=== PATIENT | male | born 1990 | race Caucasian/White ===

== ENCOUNTER 2017-02-11 09:18 | Emergency (ER) | payer OTHER ==
[~2017-02-11] VITALS: Ht 177.8 cm; Wt 100.0 kg
[2017-02-11 09:21] VITALS: BP 141/72; PULSE 72; RESP 18; TEMP 98.1; O2SAT 100
[2017-02-11 09:25] VITALS: BP 141/72; PULSE 68; RESP 18; TEMP 98.1; O2SAT 100
[2017-02-11 09:30] VITALS: PULSE 72; RESP 18; O2SAT 100
[2017-02-11] MEDS ORDERED: TYLE325T PO (09:30)
[2017-02-11] MEDS ORDERED: IBUP-232 PO (09:30)
[2017-02-11] MEDS ORDERED: SODIUM CHLORIDE 0.9% FLUSH 10 ML FLUSH IVF PRN (09:30)
[2017-02-11] MEDS ORDERED: LIDOCAINE VISCOUS 2% SOLN 15 ML UDC PO ONE (09:45)
[2017-02-11] MEDS ORDERED: ONDANSETRON HCL 4 MG/2 ML VIAL IV PUSH ONE (09:45)
[2017-02-11] MEDS ORDERED: ALUMINUM/MAGNESIUM/SIMETH 30 ML CUP PO ONE (09:45)
[2017-02-11] MEDS ORDERED: HYDROmorphone HCL PF 1 MG/ML VIAL IV PUSH ONE (09:45)
[2017-02-11 09:59] LABS: AUTOMATED NEUTROPHIL # 6.8 TH/MM3 (1.8-7.7); BASOPHIL # 0.1 TH/MM3 (0-0.2); BASOPHIL % 0.5 % (0.0-2.0); EOSINOPHIL # 0.2 TH/MM3 (0-0.4); EOSINOPHIL % 2.2 % (0.0-4.0); HEMATOCRIT 42.3 % (39.0-51.0); HEMO FLAGS DIFF FINAL; LYMPHOCYTE # 2.2 TH/MM3 (1.0-4.8); MEAN CORPUSCULAR HEMOGLOBIN 31.4 PG (27.0-34.0); MEAN CORPUSCULAR HGB CONC 34.1 % (32.0-36.0); MONO % 6.9 % (0.0-8.0); NEUT % 68.4 % (16.0-70.0); PLATELET COUNT 264 TH/MM3 (150-450); RED CELL DISTRIBUTION WIDTH 12.8 % (11.6-17.2); WHITE BLOOD COUNT 9.9 TH/MM3 (4.0-11.0)
[2017-02-11 10:00] VITALS: BP_SYST 141; BP_SYST 143; BP_DIAS 78; BP_DIAS 92; PULSE 80; RESP 18; O2SAT 100
[2017-02-11 10:08] LABS: APTT (PATIENT) 25.2 SEC (24.3-30.1); PROTHROMBIN TIME - PATIENT 10.3 SEC (9.8-11.6)
[2017-02-11 10:17] LABS: ALT (GPT) 40 U/L (12-78); ANION GAP 8 MEQ/L (5-15); AST (GOT) 23 U/L (15-37); BICARBONATE 24.6 MEQ/L (21.0-32.0); BLOOD UREA NITROGEN 11 MG/DL (7-18); CHLORIDE 108 MEQ/L (98-107); GLOMERULAR FILTRATION RATE 102 ML/MIN (>89); POTASSIUM 3.9 MEQ/L (3.5-5.1); SODIUM (NA) 141 MEQ/L (136-145)
[2017-02-11 10:20] LABS: ALKALINE PHOSPHATASE 61 U/L (45-117); CREATINE KINASE 207 U/L (39-308); TOTAL BILIRUBIN ADULT 0.6 MG/DL (0.2-1.0)
[2017-02-11 10:34] VITALS: RESP 16
[2017-02-11] MEDS ORDERED: IOHEXOL 350 MG/ML 10 ML VIAL (for RAD DIAG) IVCONTRAST ONE (10:35)
--- NOTE | 2017-02-11 11:02 | RADRPT ---
EXAM DATE/TIME: 02/11/2017 10:33 [facility] COMPARISON: No previous studies available for comparison. INDICATIONS : Substernal chest pain IV CONTRAST: 70 cc Omnipaque 350 (iohexol) IV RADIATION DOSE: 23.28 CTDIvol (mGy) MEDICAL HISTORY : None SURGICAL HISTORY : None. ENCOUNTER: Initial ACUITY: 1 day PAIN SCALE: 6/10 LOCATION: chest TECHNIQUE: Volumetric scanning of the chest was performed using a pulmonary embolism protocol MIP images were re constructed. Using automated exposure control and adjustment of the mA and/or kV according to patien t size, radiation dose was kept as low as reasonably achievable to obtain optimal diagnostic quality images. DICOM format image data is available electronically for review and comparison. Follow-up recommendations for detected pulmonary nodules are based at a minimum on nodule size and pa tient risk factors according to Fleischner Society Guidelines. FINDINGS: PULMONARY ARTERIES: There is less than optimal opacification of the pulmonary arteries. No PE is identified through the l obar and most of the segmental level pulmonary vessels. LUNGS: There is no consolidation or pneumothorax . No concerning pulmonary nodule is visualized. PLEURAE: There is no pleural thickening or pleural effusion. MEDIASTINUM: The heart and great vessels demonstrate no acute finding. MUSCULOSKELETAL: There are degenerative changes of the thoracic spine. MISCELLANEOUS: The visualized upper abdominal organs demonstrate no acute abnormality. CONCLUSION: 1. No PE is identified. 2. Additionally, no acute finding is identified to explain the clinical symptoms. Kam Jade MD on February 11, 2017 at 10:56 Board Certified Radiologist. This report was verified electronically.
[2017-02-11 11:07] LABS: CKMB 1.7 NG/ML (0.5-3.6)
[2017-02-11] MEDS ORDERED: GAVISUS2 PO (11:39)
--- NOTE | 2017-02-11 11:39 | PD ---
HPI Chief Complaint: Chest Pain Time Seen by Provider: 09:23 Travel History International Travel<30 days: No Contact w/Intl Traveler<30days: No Traveled to known affect area: No History of Present Illness HPI 26 yo male complains of chest pain which started while driving to work. he states it's severe, retrosternal, not radiating and pleuritic in nature. no cough or fever. pt vomited multiple times two nights prior and again yesterday morning. he reports binge alcohol drinking. no cocaine or amphetamines. no family hx cad. no personal hx dm, htn, hld. + tobaccoism. no similar priors. No hemoptysis or bloody stool. PFSH Past Medical History Medical History: Denies Significant Hx ?: Not Past Surgical History Surgical History: No Previous Surgery Social History Alcohol Use: Yes Tobacco Use: Yes Substance Use: No Allergies-Medications (Allergen,Severity, Reaction): Coded Allergies: No Known Allergies (Unverified , 02/11/17) Reported Meds & Prescriptions Reported Meds & Active Scripts Active Gaviscon Extra Strength R Liq (Aluminum Hydroxide-Mag Carb Liq) 508-475 Mg/10 Ml Susp 10-20 Ml PO QID PRN 5 Days Maximum 80 mL/24 hrs. Reported Ibuprofen 600 Mg Tab 600 Mg PO Q6H PRN Tylenol (Acetaminophen) 325 Mg Tab 650 Mg PO Q4H PRN Review of Systems Except as stated in HPI: all other systems reviewed are Neg General / Constitutional: No: Fever Physical Exam Narrative GENERAL: 26 yo male, wnwd, mild distress 2/2 pain and/or anxiety SKIN: Warm and dry. HEAD: Atraumatic. Normocephalic. EYES: Pupils equal and round. No scleral icterus. No injection or drainage. ENT: No nasal bleeding or discharge. Mucous membranes pink and moist. NECK: Trachea midline. No JVD. CARDIOVASCULAR: minimal tachycardia. no crepitus/crunch, RESPIRATORY: No accessory muscle use. Clear to auscultation. Breath sounds equal bilaterally. GASTROINTESTINAL: Abdomen soft, non-tender, nondistended. Hepatic and splenic margins not palpable. MUSCULOSKELETAL: Extremities without clubbing, cyanosis, or edema. No obvious deformities. NEUROLOGICAL: Awake and alert. No obvious cranial nerve deficits. Motor grossly within normal limits. Five out of 5 muscle strength in the arms and legs. Normal speech. PSYCHIATRIC: Appropriate mood and affect; insight and judgment normal. Data Data Last Documented VS Vital Signs Date Time Temp Pulse Resp B/P (MAP) Pulse Ox O2 Delivery O2 Flow Rate FiO2 02/11/17 12:27 90 18 156/64 (94) 98 02/11/17 10:00 Nasal Cannula 2.00 02/11/17 09:25 98.1 VS reviewed Orders Orders Electrocardiogram (02/11/17:23) Ckmb (Isoenzyme) Profile (02/11/17:23) Complete Blood Count With Diff (02/11/17:23) Comprehensive Metabolic Panel (02/11/17:23) Magnesium (Mg) (02/11/17:) Prothrombin Time / Inr (Pt) (02/11/17:23) Act Partial Throm Time (Ptt) (02/11/17:23) Troponin I (02/11/17:23) Lipase (02/11/17:23) Chest, Single Ap (02/11/17:23) Ecg Monitoring (02/11/17:23) Bilateral Bp Monitoring (02/11/17:23) Iv Access Insert/Monitor (02/11/17:23) Oximetry (02/11/17:23) Oxygen Administration (02/11/17:23) Sodium Chloride 0.9% Flush (Ns Flush) (02/11/17 09:30) Ct Pulmonary Angiogram (02/11/17 09:23) Ondansetron Inj (Zofran Inj) (02/11/17 09:45) Hydromorphone Pf Inj (Dilaudid Pf Inj) (02/11/17 09:45) Al-Mag Hy-Si 40-40-4 Mg/Ml Liq (Mag-Al P (02/11/17 09:45) Lidocaine 2% Viscous (Xylocaine 2% Visco (02/11/17 09:45) CKMB (02/11/17 09:30) CKMB% (02/11/17 09:30) Iohexol 350 Inj (Omnipaque 350 Inj) (02/11/17 10:35) Ed Discharge Order (02/11/17 11:41) Labs Laboratory Tests Test 02/11/17 09:30 White Blood Count 9.9 TH/MM3 Red Blood Count 4.60 MIL/MM3 Hemoglobin 14.5 GM/DL Hematocrit 42.3 % Mean Corpuscular Volume 92.0 FL Mean Corpuscular Hemoglobin 31.4 PG Mean Corpuscular Hemoglobin Concent 34.1 % Red Cell Distribution Width 12.8 % Platelet Count 264 TH/MM3 Mean Platelet Volume 7.5 FL Neutrophils (%) (Auto) 68.4 % Lymphocytes (%) (Auto) 22.0 % Monocytes (%) (Auto) 6.9 % Eosinophils (%) (Auto) 2.2 % Basophils (%) (Auto) 0.5 % Neutrophils # (Auto) 6.8 TH/MM3 Lymphocytes # (Auto) 2.2 TH/MM3 Monocytes # (Auto) 0.7 TH/MM3 Eosinophils # (Auto) 0.2 TH/MM3 Basophils # (Auto) 0.1 TH/MM3 CBC Comment DIFF FINAL Differential Comment Prothrombin Time 10.3 SEC Prothromb Time International Ratio 1.0 RATIO Activated Partial Thromboplast Time 25.2 SEC Blood Urea Nitrogen 11 MG/DL Creatinine 0.91 MG/DL Random Glucose 90 MG/DL Total Protein 7.4 GM/DL Albumin 3.9 GM/DL Calcium Level 9.2 MG/DL Magnesium Level 2.0 MG/DL Alkaline Phosphatase 61 U/L Aspartate Amino Transf (AST/SGOT) 23 U/L Alanine Aminotransferase (ALT/SGPT) 40 U/L Total Bilirubin 0.6 MG/DL Sodium Level 141 MEQ/L Potassium Level 3.9 MEQ/L Chloride Level 108 MEQ/L Carbon Dioxide Level 24.6 MEQ/L Anion Gap 8 MEQ/L Estimat Glomerular Filtration Rate 102 ML/MIN Total Creatine Kinase 207 U/L Creatine Kinase MB 1.7 NG/ML Troponin I LESS THAN 0.02 NG/ML Lipase 73 U/L [facility] Medical Decision Making Medical Screen Exam Complete: Yes Emergency Medical Condition: Yes Medical Record Reviewed: Yes Differential Diagnosis frankie del angel, cad, atypical pain Narrative Course CBC & BMP Diagram 02/11/17 09:30 Total Protein 7.4, Albumin 3.9, Calcium Level 9.2, Magnesium Level 2.0, Alkaline Phosphatase 61, Aspartate Amino Transf (AST/SGOT) 23, Alanine Aminotransferase (ALT/SGPT) 40, Total Bilirubin 0.6 Tn < 0.02 Lipase normal EKG shows sinus rhythm no ischemic injury pattern or clinical correlate per tracing Last Impressions Chest X-Ray 02/11/17922 Signed Impressions: Service Date/Time: Saturday, February 11, 2017 09:43 - CONCLUSION: 1. No acute cardiopulmonary disease. Omar Vincent MD CT Angiography 02/11/17922 Signed Impressions: Service Date/Time: Saturday, February 11, 2017 10:33 - CONCLUSION: 1. No PE is identified. 2. Additionally, no acute finding is identified to explain the clinical symptoms. Kam Jade MD Pain likely 2/2 vomiting with cad much less likely Scripts as below Diagnosis Primary Impression: Chest pain Qualified Codes: R07.9 - Chest pain, unspecified Additional Impression: Esophageal pain Referrals: [facility] 2 days Med/Other Pt SpecificInfo: Prescription(s) given Scripts Aluminum Hydroxide-Mag Carb Liq (Gaviscon Extra Strength R Liq) 508-475 Mg/10 Ml Susp 10-20 ML PO QID Y for HEARTBURN for 5 Days, ML 0 Refills Maximum 80 mL/24 hrs. Prov: Jef Padilla MD 02/11/17 Disposition: 01 DISCHARGE HOME Condition: Stable Jef Padilla MD Feb 11, 2017 11:39
--- NOTE | 2017-02-11 11:44 | RADRPT ---
EXAM DATE/TIME: 02/11/2017 09:43 [facility] COMPARISON: No previous studies available for comparison. INDICATIONS : Chest pain. MEDICAL HISTORY : None. SURGICAL HISTORY : None. ENCOUNTER: Initial ACUITY: 1 day PAIN SCORE: 10/10 LOCATION: Bilateral chest FINDINGS: A single view of the chest demonstrates the lungs to be symmetrically aerated without evidence of mas s, infiltrate or effusion. The cardiomediastinal contours are unremarkable. Osseous structures are intact. CONCLUSION: 1. No acute cardiopulmonary disease. Omar Vincent MD on February 11, 2017 at 11:41 Board Certified Radiologist. This report was verified electronically.
[2017-02-11 12:27] VITALS: BP 156/64
--- NOTE | 2017-02-11 18:49 | EKG ---
Date Performed: 02/11/2017 Time Performed: 09:18:10 PTAGE: 26 years EKG: Sinus rhythm WITH MARKED SINUS ARRHYTHMIA INCOMPLETE RIGHT BUNDLE BRANCH BLOCK BORDERLINE ECG NO PREVIOUS TRACING DOCTOR: Stacie Garza Interpretating Date/Time 02/11/2017 18:49:05
== END 2017-02-11 12:28 | disposition home or self-care (01) ==
LOC: NEPE 09:18
DX: R07.9 Chest pain, unspecified (principal); R07.0 Pain in throat; Z72.0 Tobacco use; Z79.899 Other long term (current) drug therapy
CPT/HCPCS: 71010; 71275; 80053; 82550; 82552; 83690; 83735; 84484; 85025; 85610; 85730; 93005; 96374; 96375; 99285; J1170; J2405; Q9967